=== PATIENT | female | born 1935 | race Caucasian/White ===

== ENCOUNTER 2022-05-04 14:48 | Inpatient (IN) ==
[2022-05-04] MEDS ORDERED: Benzonatate 100 MG CAPSULE PO PRN (19:43)
[2022-05-04] MEDS ORDERED: polyethylene glycoL 3350 17 GM POWD.PACK PO PRN (19:43)
[2022-05-04] MEDS ORDERED: Saline Nasal Spray 44 ML BOTTLE NS PRN (19:43)
[2022-05-04] MEDS: Apixaban 5 MG TABLET PO SCH (22:09)
[2022-05-04] MEDS: Sennosides/Docusate Sodium TABLET PO SCH (22:13)
[2022-05-05 07:49] LABS: Basophils % 0.4 %; Eosinophils # 0.4 K/mcL (0.0-0.6); Eosinophils % 5.4 %; Hematocrit 34.6 % (35.3-44.9); Hemoglobin 10.9 g/dL (11.5-15.4); Immature Granulocytes % 1.2 % (0-4); Lymphocytes # 1.4 K/mcL (0.6-4.6); Lymphocytes % 20.4 %; Mean Corpuscular HGB Conc 31.5 g/dL (31.6-35.5); Mean Corpuscular Hemoglobin 27.4 pg (28.0-33.3); Mean Corpuscular Volume 86.9 fL (83.0-100.0); Mean Platelet Volume 9.8 fL (9.4-12.4); Monocytes # 0.6 K/mcL (0.0-1.3); Monocytes % 8.6 %; Neutrophils # 4.4 K/mcL (1.6-8.9); Platelet Count 284 K/mcL (140-400); Red Blood Count 3.98 M/mcL (3.82-4.97); Red Cell Distribution Width 13.8 % (11.5-14.5); White Blood Count 6.8 K/mcL (4.3-11.1)
[2022-05-05 08:09] LABS: BUN/Creatinine Ratio 18 (6-26); Blood Urea Nitrogen 14 mg/dL (8-23); Calcium 9.3 mg/dL (8.6-10.3); Carbon Dioxide 31 mEq/L (23-29); Chloride 100 mEq/L (98-107); Glucose 126 mg/dL (70-105); Osmolality,Calculated 286 (280-300); Sodium 137 mEq/L (136-145); eGFR For African Americans > 60 (> 60); eGFR For Non-African Americans > 60 (> 60)
[2022-05-05] MEDS ORDERED: METFORMIN HCL 500 MG PO SCH (09:00)
[2022-05-05] MEDS ORDERED: Ergocalciferol (VIT D2) 50,000 UNIT (1.25MG) CAP PO SCH (09:00)
[2022-05-05] MEDS: Sennosides/Docusate Sodium TABLET PO SCH ×2 (11:22→21:40)
[2022-05-05] MEDS: amLODIPine 5 MG TABLET PO SCH (11:23)
[2022-05-05] MEDS: Loratadine 10 MG TABLET PO SCH (11:23)
[2022-05-05] MEDS: lisinopriL 20 MG TABLET PO SCH (11:23)
[2022-05-05] MEDS: Cholecalciferol (D-3) 1,000 UNIT (25MCG) TABLET PO SCH (11:23)
[2022-05-05] MEDS: Apixaban 5 MG TABLET PO SCH ×2 (11:24→21:42)
[2022-05-05] MEDS: Ergocalciferol (VIT D2) 50,000 UNIT (1.25MG) CAP PO SCH (11:58)
[2022-05-05] MEDS: *HR* OxyCODONE/APAP 5/325 TABLET PO PRN ×2 (13:34→21:44)
[2022-05-05] MEDS: PrednisoLONE Acetate 1% Opth 5 ML BOTTLE RIGHT EYE SCH ×3 (13:36→21:46)
[2022-05-05] MEDS: METFORMIN HCL 500 MG PO SCH (18:06)
[2022-05-05] MEDS: Melatonin 3 MG TABLET PO PRN (21:43)
[2022-05-06] MEDS ORDERED: *HR* Metformin 500 MG TABLET PO SCH (08:00)
[2022-05-06] MEDS: Cholecalciferol (D-3) 1,000 UNIT (25MCG) TABLET PO SCH (09:15)
[2022-05-06] MEDS: Apixaban 5 MG TABLET PO SCH ×2 (09:15→21:41)
[2022-05-06] MEDS: *HR* OxyCODONE/APAP 5/325 TABLET PO PRN ×2 (09:15→21:41)
[2022-05-06] MEDS: Sennosides/Docusate Sodium TABLET PO SCH ×2 (09:15→21:41)
[2022-05-06] MEDS: lisinopriL 20 MG TABLET PO SCH (09:15)
[2022-05-06] MEDS: amLODIPine 5 MG TABLET PO SCH (09:15)
[2022-05-06] MEDS: Loratadine 10 MG TABLET PO SCH (09:16)
[2022-05-06] MEDS: PrednisoLONE Acetate 1% Opth 5 ML BOTTLE RIGHT EYE SCH ×4 (09:17→21:43)
[2022-05-06] MEDS: METFORMIN HCL 500 MG PO SCH (17:05)
[2022-05-06] MEDS: Melatonin 3 MG TABLET PO PRN (21:41)
[2022-05-07] MEDS: amLODIPine 5 MG TABLET PO SCH (09:12)
[2022-05-07] MEDS: Apixaban 5 MG TABLET PO SCH ×2 (09:13→19:57)
[2022-05-07] MEDS: Cholecalciferol (D-3) 1,000 UNIT (25MCG) TABLET PO SCH (09:14)
[2022-05-07] MEDS: lisinopriL 20 MG TABLET PO SCH (09:14)
[2022-05-07] MEDS: Sennosides/Docusate Sodium TABLET PO SCH ×2 (09:14→19:57)
[2022-05-07] MEDS: Loratadine 10 MG TABLET PO SCH (09:14)
[2022-05-07] MEDS: PrednisoLONE Acetate 1% Opth 5 ML BOTTLE RIGHT EYE SCH ×4 (09:15→19:57)
[2022-05-07] MEDS: METFORMIN HCL 500 MG PO SCH (15:15)
[2022-05-07] MEDS: Acetaminophen 325 MG TABLET PO PRN (16:15)
[2022-05-07] MEDS: *HR* OxyCODONE/APAP 5/325 TABLET PO PRN (19:57)
[2022-05-07] MEDS: Melatonin 3 MG TABLET PO PRN (19:57)
[2022-05-08] MEDS: *HR* OxyCODONE/APAP 5/325 TABLET PO PRN ×2 (04:36→18:12)
[2022-05-08] MEDS: Acetaminophen 325 MG TABLET PO PRN (08:58)
[2022-05-08] MEDS: Sennosides/Docusate Sodium TABLET PO SCH ×2 (08:58→21:06)
[2022-05-08] MEDS: amLODIPine 5 MG TABLET PO SCH (08:58)
[2022-05-08] MEDS: Cholecalciferol (D-3) 1,000 UNIT (25MCG) TABLET PO SCH (08:59)
[2022-05-08] MEDS: Apixaban 5 MG TABLET PO SCH ×2 (08:59→21:13)
[2022-05-08] MEDS: Loratadine 10 MG TABLET PO SCH (08:59)
[2022-05-08] MEDS: lisinopriL 20 MG TABLET PO SCH (08:59)
[2022-05-08] MEDS: PrednisoLONE Acetate 1% Opth 5 ML BOTTLE RIGHT EYE SCH ×4 (09:02→21:13)
[2022-05-08] MEDS: METFORMIN HCL 500 MG PO SCH (17:10)
[2022-05-08] MEDS: Melatonin 3 MG TABLET PO PRN (21:13)
[2022-05-09 04:45] LABS: Basophils % 0.2 %; Eosinophils # 0.2 K/mcL (0.0-0.6); Eosinophils % 4.8 %; Hematocrit 33.7 % (35.3-44.9); Hemoglobin 10.5 g/dL (11.5-15.4); Lymphocytes # 1.7 K/mcL (0.6-4.6); Lymphocytes % 34.8 %; Mean Corpuscular HGB Conc 31.2 g/dL (31.6-35.5); Mean Corpuscular Hemoglobin 27.4 pg (28.0-33.3); Mean Platelet Volume 9.2 fL (9.4-12.4); Monocytes # 0.5 K/mcL (0.0-1.3); Monocytes % 9.1 %; Neutrophils # 2.5 K/mcL (1.6-8.9); Platelet Count 331 K/mcL (140-400); Red Blood Count 3.83 M/mcL (3.82-4.97); Segmented Neutrophils % 50.1 %
[2022-05-09 05:02] LABS: BUN/Creatinine Ratio 13 (6-26); Blood Urea Nitrogen 11 mg/dL (8-23); Calcium 9.6 mg/dL (8.6-10.3); Carbon Dioxide 31 mEq/L (23-29); Chloride 102 mEq/L (98-107); Glucose 100 mg/dL (70-105); Osmolality,Calculated 285 (280-300); Potassium 4.1 mEq/L (3.5-5.1); Sodium 138 mEq/L (136-145); eGFR For African Americans > 60 (> 60); eGFR For Non-African Americans > 60 (> 60)
[2022-05-09] MEDS: lisinopriL 20 MG TABLET PO SCH (07:59)
[2022-05-09] MEDS: Apixaban 5 MG TABLET PO SCH (07:59)
[2022-05-09] MEDS: amLODIPine 5 MG TABLET PO SCH (07:59)
[2022-05-09] MEDS: Cholecalciferol (D-3) 1,000 UNIT (25MCG) TABLET PO SCH (07:59)
[2022-05-09] MEDS: Loratadine 10 MG TABLET PO SCH (07:59)
[2022-05-09] MEDS: Sennosides/Docusate Sodium TABLET PO SCH ×2 (08:02→17:31)
[2022-05-09] MEDS: PrednisoLONE Acetate 1% Opth 5 ML BOTTLE RIGHT EYE SCH ×4 (08:04→19:48)
[2022-05-09 12:54] LABS: Hemoglobin 10.9 g/dL (11.5-15.4)
[2022-05-09] MEDS: METFORMIN HCL 500 MG PO SCH (16:10)
[2022-05-09] MEDS: Acetaminophen 325 MG TABLET PO PRN (19:48)
[2022-05-09 20:18] LABS: Hemoglobin 10.2 g/dL (11.5-15.4)
[2022-05-10 04:34] LABS: Hematocrit 31.9 % (35.3-44.9); Hemoglobin 10.2 g/dL (11.5-15.4)
[2022-05-10] MEDS: Acetaminophen 325 MG TABLET PO PRN (07:13)
[2022-05-10] MEDS: lisinopriL 20 MG TABLET PO SCH (07:14)
[2022-05-10] MEDS: PrednisoLONE Acetate 1% Opth 5 ML BOTTLE RIGHT EYE SCH ×4 (07:14→23:17)
[2022-05-10] MEDS: Cholecalciferol (D-3) 1,000 UNIT (25MCG) TABLET PO SCH (07:14)
[2022-05-10] MEDS: amLODIPine 5 MG TABLET PO SCH (07:14)
[2022-05-10] MEDS: Loratadine 10 MG TABLET PO SCH (07:14)
[2022-05-10] MEDS: Sennosides/Docusate Sodium TABLET PO SCH ×2 (07:15→23:18)
[2022-05-10 20:40] LABS: Hematocrit 35.5 % (35.3-44.9); Hemoglobin 11.3 g/dL (11.5-15.4)
[2022-05-10] MEDS ORDERED: Apixaban 5 MG TABLET PO SCH (21:00)
[2022-05-10] MEDS: Melatonin 3 MG TABLET PO PRN (23:18)
[2022-05-11 05:13] LABS: Basophils % 0.2 %; Eosinophils # 0.2 K/mcL (0.0-0.6); Eosinophils % 3.5 %; Hematocrit 34.5 % (35.3-44.9); Hemoglobin 10.8 g/dL (11.5-15.4); Immature Granulocytes % 0.8 % (0-4); Lymphocytes # 1.9 K/mcL (0.6-4.6); Lymphocytes % 28.5 %; Mean Corpuscular HGB Conc 31.3 g/dL (31.6-35.5); Mean Corpuscular Hemoglobin 27.4 pg (28.0-33.3); Mean Corpuscular Volume 87.6 fL (83.0-100.0); Mean Platelet Volume 9.6 fL (9.4-12.4); Monocytes # 0.5 K/mcL (0.0-1.3); Monocytes % 7.1 %; Neutrophils # 3.9 K/mcL (1.6-8.9); Platelet Count 356 K/mcL (140-400); Red Blood Count 3.94 M/mcL (3.82-4.97); Segmented Neutrophils % 59.9 %; White Blood Count 6.5 K/mcL (4.3-11.1)
[2022-05-11 05:29] LABS: BUN/Creatinine Ratio 17 (6-26); Blood Urea Nitrogen 13 mg/dL (8-23); Calcium 9.9 mg/dL (8.6-10.3); Carbon Dioxide 30 mEq/L (23-29); Chloride 103 mEq/L (98-107); Glucose 118 mg/dL (70-105); Osmolality,Calculated 289 (280-300); Potassium 3.9 mEq/L (3.5-5.1); Sodium 139 mEq/L (136-145); eGFR For African Americans > 60 (> 60); eGFR For Non-African Americans > 60 (> 60)
[2022-05-11] MEDS: *HR* OxyCODONE/APAP 5/325 TABLET PO PRN (06:03)
[2022-05-11] MEDS: Loratadine 10 MG TABLET PO SCH (08:02)
[2022-05-11] MEDS: amLODIPine 5 MG TABLET PO SCH (08:02)
[2022-05-11] MEDS: lisinopriL 20 MG TABLET PO SCH (08:02)
[2022-05-11] MEDS: Cholecalciferol (D-3) 1,000 UNIT (25MCG) TABLET PO SCH (08:02)
[2022-05-11] MEDS: Sennosides/Docusate Sodium TABLET PO SCH ×2 (08:03→21:02)
[2022-05-11] MEDS: Apixaban 5 MG TABLET PO SCH ×2 (08:05→21:02)
[2022-05-11] MEDS: PrednisoLONE Acetate 1% Opth 5 ML BOTTLE RIGHT EYE SCH ×4 (08:07→21:02)
[2022-05-11] MEDS: Acetaminophen 325 MG TABLET PO PRN (13:03)
[2022-05-11 18:05] LABS: Hematocrit 30.3 % (35.3-44.9); Hemoglobin 9.8 g/dL (11.5-15.4)
[2022-05-12 04:49] LABS: Basophils % 0.4 %; Eosinophils # 0.2 K/mcL (0.0-0.6); Hemoglobin 10.7 g/dL (11.5-15.4); Immature Granulocytes % 0.5 % (0-4); Lymphocytes # 1.6 K/mcL (0.6-4.6); Lymphocytes % 29.2 %; Mean Corpuscular HGB Conc 31.5 g/dL (31.6-35.5); Mean Corpuscular Hemoglobin 27.5 pg (28.0-33.3); Mean Corpuscular Volume 87.4 fL (83.0-100.0); Mean Platelet Volume 9.5 fL (9.4-12.4); Monocytes # 0.5 K/mcL (0.0-1.3); Monocytes % 8.2 %; Neutrophils # 3.2 K/mcL (1.6-8.9); Platelet Count 318 K/mcL (140-400); Red Blood Count 3.89 M/mcL (3.82-4.97); Red Cell Distribution Width 14.2 % (11.5-14.5); Segmented Neutrophils % 57.7 %; White Blood Count 5.5 K/mcL (4.3-11.1)
[2022-05-12] MEDS: Acetaminophen 325 MG TABLET PO PRN (07:49)
[2022-05-12] MEDS: Apixaban 5 MG TABLET PO SCH ×2 (07:49→22:07)
[2022-05-12] MEDS: amLODIPine 5 MG TABLET PO SCH (07:49)
[2022-05-12] MEDS: Cholecalciferol (D-3) 1,000 UNIT (25MCG) TABLET PO SCH (07:49)
[2022-05-12] MEDS: Loratadine 10 MG TABLET PO SCH (07:49)
[2022-05-12] MEDS: Sennosides/Docusate Sodium TABLET PO SCH ×2 (07:50→22:07)
[2022-05-12] MEDS: PrednisoLONE Acetate 1% Opth 5 ML BOTTLE RIGHT EYE SCH ×4 (07:50→22:07)
[2022-05-12] MEDS: lisinopriL 20 MG TABLET PO SCH (07:50)
[2022-05-12 09:48] LABS: Hematocrit 32.5 % (35.3-44.9); Hemoglobin 10.4 g/dL (11.5-15.4)
[2022-05-12] MEDS: Ergocalciferol (VIT D2) 50,000 UNIT (1.25MG) CAP PO SCH (12:52)
[2022-05-12] MEDS: *HR* OxyCODONE/APAP 5/325 TABLET PO PRN ×2 (13:58→22:06)
[2022-05-12 17:59] LABS: Hematocrit 33.4 % (35.3-44.9); Hemoglobin 10.7 g/dL (11.5-15.4)
[2022-05-12] MEDS: Melatonin 3 MG TABLET PO PRN (22:07)
[2022-05-13 05:16] LABS: Basophils % 0.6 %; Eosinophils # 0.2 K/mcL (0.0-0.6); Eosinophils % 3.8 %; Hematocrit 31.2 % (35.3-44.9); Immature Granulocytes % 0.6 % (0-4); Lymphocytes # 1.8 K/mcL (0.6-4.6); Lymphocytes % 35.4 %; Mean Corpuscular HGB Conc 32.1 g/dL (31.6-35.5); Mean Corpuscular Hemoglobin 27.8 pg (28.0-33.3); Mean Corpuscular Volume 86.7 fL (83.0-100.0); Mean Platelet Volume 9.6 fL (9.4-12.4); Monocytes # 0.5 K/mcL (0.0-1.3); Neutrophils # 2.6 K/mcL (1.6-8.9); Platelet Count 293 K/mcL (140-400); Red Cell Distribution Width 14.2 % (11.5-14.5); Segmented Neutrophils % 50.6 %; White Blood Count 5.2 K/mcL (4.3-11.1)
[2022-05-13] MEDS: Cholecalciferol (D-3) 1,000 UNIT (25MCG) TABLET PO SCH (08:15)
[2022-05-13] MEDS: Sennosides/Docusate Sodium TABLET PO SCH ×2 (08:15→20:32)
[2022-05-13] MEDS: lisinopriL 20 MG TABLET PO SCH (08:15)
[2022-05-13] MEDS: Apixaban 5 MG TABLET PO SCH ×2 (08:15→20:32)
[2022-05-13] MEDS: Loratadine 10 MG TABLET PO SCH (08:16)
[2022-05-13] MEDS: amLODIPine 5 MG TABLET PO SCH (08:16)
[2022-05-13] MEDS: PrednisoLONE Acetate 1% Opth 5 ML BOTTLE RIGHT EYE SCH ×4 (08:19→20:35)
[2022-05-13] MEDS: Melatonin 3 MG TABLET PO PRN (20:32)
[2022-05-13] MEDS: *HR* OxyCODONE/APAP 5/325 TABLET PO PRN (20:33)
[2022-05-14] MEDS: *HR* OxyCODONE/APAP 5/325 TABLET PO PRN ×2 (06:08→21:57)
[2022-05-14] MEDS: Loratadine 10 MG TABLET PO SCH (08:51)
[2022-05-14] MEDS: Sennosides/Docusate Sodium TABLET PO SCH ×2 (08:51→21:57)
[2022-05-14] MEDS: amLODIPine 5 MG TABLET PO SCH (08:51)
[2022-05-14] MEDS: lisinopriL 20 MG TABLET PO SCH (08:51)
[2022-05-14] MEDS: Cholecalciferol (D-3) 1,000 UNIT (25MCG) TABLET PO SCH (08:51)
[2022-05-14] MEDS: Apixaban 5 MG TABLET PO SCH ×2 (08:51→21:56)
[2022-05-14] MEDS: PrednisoLONE Acetate 1% Opth 5 ML BOTTLE RIGHT EYE SCH ×4 (08:53→21:58)
[2022-05-14 08:59] LABS: Basophils % 0.1 %; Eosinophils # 0.2 K/mcL (0.0-0.6); Eosinophils % 2.5 %; Hemoglobin 10.5 g/dL (11.5-15.4); Immature Granulocytes % 0.3 % (0-4); Lymphocytes # 1.5 K/mcL (0.6-4.6); Lymphocytes % 22.4 %; Mean Corpuscular HGB Conc 31.8 g/dL (31.6-35.5); Mean Platelet Volume 9.4 fL (9.4-12.4); Monocytes # 0.4 K/mcL (0.0-1.3); Neutrophils # 4.7 K/mcL (1.6-8.9); Platelet Count 302 K/mcL (140-400); Red Blood Count 3.75 M/mcL (3.82-4.97); Red Cell Distribution Width 14.2 % (11.5-14.5); Segmented Neutrophils % 68.7 %; White Blood Count 6.8 K/mcL (4.3-11.1)
[2022-05-14] MEDS: Melatonin 3 MG TABLET PO PRN (21:57)
[2022-05-15 04:18] LABS: Basophils % 0.4 %; Eosinophils # 0.2 K/mcL (0.0-0.6); Eosinophils % 4.3 %; Hematocrit 30.4 % (35.3-44.9); Hemoglobin 9.6 g/dL (11.5-15.4); Immature Granulocytes % 0.4 % (0-4); Lymphocytes # 1.9 K/mcL (0.6-4.6); Lymphocytes % 37.9 %; Mean Corpuscular HGB Conc 31.6 g/dL (31.6-35.5); Mean Corpuscular Hemoglobin 27.6 pg (28.0-33.3); Mean Corpuscular Volume 87.4 fL (83.0-100.0); Mean Platelet Volume 9.4 fL (9.4-12.4); Monocytes # 0.5 K/mcL (0.0-1.3); Monocytes % 9.3 %; Neutrophils # 2.4 K/mcL (1.6-8.9); Platelet Count 243 K/mcL (140-400); Red Blood Count 3.48 M/mcL (3.82-4.97); Red Cell Distribution Width 14.5 % (11.5-14.5); Segmented Neutrophils % 47.7 %; White Blood Count 4.9 K/mcL (4.3-11.1)
[2022-05-15 04:33] LABS: BUN/Creatinine Ratio 12 (6-26); Blood Urea Nitrogen 10 mg/dL (8-23); Calcium 9.5 mg/dL (8.6-10.3); Carbon Dioxide 31 mEq/L (23-29); Chloride 105 mEq/L (98-107); Glucose 101 mg/dL (70-105); Osmolality,Calculated 289 (280-300); Potassium 4.5 mEq/L (3.5-5.1); Sodium 140 mEq/L (136-145); eGFR For African Americans > 60 (> 60); eGFR For Non-African Americans > 60 (> 60)
[2022-05-15 07:06] VITALS: BP 129/76; PULSE 82; RESP 16; TEMP 98.4; O2SAT 98
[2022-05-15] MEDS: Apixaban 5 MG TABLET PO SCH (08:05)
[2022-05-15] MEDS: amLODIPine 5 MG TABLET PO SCH (08:06)
[2022-05-15] MEDS: Sennosides/Docusate Sodium TABLET PO SCH (08:06)
[2022-05-15] MEDS: Cholecalciferol (D-3) 1,000 UNIT (25MCG) TABLET PO SCH (08:06)
[2022-05-15] MEDS: lisinopriL 20 MG TABLET PO SCH (08:06)
[2022-05-15] MEDS: Loratadine 10 MG TABLET PO SCH (08:06)
[2022-05-15] MEDS: PrednisoLONE Acetate 1% Opth 5 ML BOTTLE RIGHT EYE SCH ×2 (08:08→13:41)
== END 2022-05-15 17:34 | disposition short-term general hospital (02) | DRG 559 ==
LOC: INPGRE 18:27
PROVIDERS: ADMIT Family Medicine; ATTEND Family Medicine